=== PATIENT | female | born 1995 | race Caucasian/White ===

== ENCOUNTER 2018-10-04 14:41 | Day surgery (SDC) | payer OTHER ==
[2018-10-02 09:56] LABS: ABSOLUTE LYMPHOCYTES (AUTO) 2.1 10^3/uL (0.5-4.7); ABSOLUTE MONOCYTES (AUTO) 0.5 10^3/uL (0.1-1.4); ABSOLUTE NEUT (AUTO) 4.2 10^3/uL (1.7-8.2); BASOPHILS % (AUTO) 0.5 % (0-2); EOSINOPHILS % (AUTO) 0.4 % (0-6); HEMATOCRIT 40.3 % (36.0-47.0); HEMOGLOBIN 14.1 g/dL (12.0-15.5); LYMPHOCYTES % (AUTO) 30.8 % (13-45); MEAN CORPUSCULAR HEMOGLOBIN 30.7 pg (27.0-33.4); MEAN CORPUSCULAR VOLUME 88 fl (80-97); MONOCYTES % (AUTO) 6.9 % (3-13); PLATELET COUNT 337 10^3/uL (150-450); RED BLOOD COUNT 4.59 10^6/uL (3.72-5.28); RED CELL DISTRIBUTION WIDTH 12.2 % (11.5-14.0); SEGMENTED NEUTROPHILS % (AUTO) 61.4 % (42-78); TOTAL CELLS COUNTED % (AUTO) 100 %; WHITE BLOOD COUNT 6.8 10^3/uL (4.0-10.5)
[2018-10-02 10:07] LABS: APPEARANCE,URINE CLEAR; BILIRUBIN,URINE NEGATIVE (NEGATIVE); COLOR,URINE YELLOW; GLUCOSE, URINE NEGATIVE (NEGATIVE); KETONES,URINE NEGATIVE (NEGATIVE); LEUKOCYTE ESTERASE,URINE NEGATIVE (NEGATIVE); NITRITE,URINE NEGATIVE (NEGATIVE); PROTEIN,URINE NEGATIVE (NEGATIVE); URINE SPECIFIC GRAVITY 1.023; UROBILINOGEN,URINE NEGATIVE mg/dL (<2.0)
[2018-10-02 10:28] LABS: ANION GAP 11 (5-19); BLOOD UREA NITROGEN 13 mg/dL (7-20); CALCIUM 9.8 mg/dL (8.4-10.2); CARBON DIOXIDE 26 mmol/L (22-30); CHLORIDE 103 mmol/L (98-107); GLUCOSE 84 mg/dL (75-110); POTASSIUM 4.6 mmol/L (3.6-5.0); SODIUM 140.3 mmol/L (137-145)
--- NOTE | 2018-10-02 10:38 | RADIOLOGY REPORT (SQ) ---
EXAM DESCRIPTION: CHEST PA/LATERAL COMPLETED DATE/TIME: 10/02/2018 10:22 am REASON FOR STUDY: PRE-OP COMPARISON: None. EXAM PARAMETERS: NUMBER OF VIEWS: two views TECHNIQUE: Digital Frontal and Lateral radiographic views of the chest acquired. RADIATION DOSE: NA LIMITATIONS: none FINDINGS: LUNGS AND PLEURA: No opacities, masses or pneumothorax. No pleural effusion. MEDIASTINUM AND HILAR STRUCTURES: No masses or contour abnormalities. HEART AND VASCULAR STRUCTURES: Heart normal size. No evidence for failure. BONES: No acute findings. HARDWARE: None in the chest. OTHER: No other significant finding. IMPRESSION: 1. NO SIGNIFICANT RADIOGRAPHIC FINDING IN THE CHEST. TECHNICAL DOCUMENTATION: JOB ID: [id number] [facility]- All Rights Reserved Reading location - IP/workstation name: [email or web address]
--- NOTE | 2018-10-02 14:53 | EKG REPORT ---
SEVERITY:- NORMAL ECG - SINUS RHYTHM WITH SINUS ARRHTHYMIA : Confirmed by: Jenny Heredia 02-Oct-2018 14:52:33
[~2018-10-04 14:41] MED LIST: CEFAZOLIN 2 GM/D5W RTU 2 GM/50 ML RTUPB IV ONE; CEFAZOLIN 2 GM/D5W RTU 2 GM/50 ML RTUPB IV PRN; LACTATED RINGERS 1000 ML IV PRN; LIDOCAINE 0.5% INJ-PF (5 MG/ML) 50 ML SDV SUBCUT PRN
[2018-10-04] MEDS ORDERED: MIDAZOLAM 2 MG/2 ML INJ ONE (15:49)
[2018-10-04] MEDS ORDERED: ONDANSETRON HCL INJ/PF 4 MG/2 ML SDV ONE ×2 (15:49→18:39)
[2018-10-04] MEDS ORDERED: PROPOFOL INJ 200 MG/20 ML VIAL IV ONE (15:49)
[2018-10-04] MEDS ORDERED: DEXAMETHASONE SOD PHOSPHATE INJ 4 MG/1 ML VIAL ONE (15:49)
[2018-10-04] MEDS ORDERED: FENTANYL CITRATE INJ/PF 100 MCG/2 ML AMPUL ONE (15:49)
[2018-10-04] MEDS ORDERED: BUPIVACAINE HCL 0.5 % INJ/PF 30 ML SDV ONE (15:56)
[2018-10-04] MEDS ORDERED: MEPERIDINE HCL/PF INJ 25 MG/1 ML DISP.SYRIN IV PRN (16:22)
[2018-10-04] MEDS ORDERED: FENTANYL CITRATE INJ/PF 100 MCG/2 ML AMPUL IV PRN ×3 (16:22)
[2018-10-04] MEDS ORDERED: DIPHENHYDRAMINE HCL 50 MG/ML VIAL IV PRN (16:22)
[2018-10-04] MEDS ORDERED: MORPHINE SULFATE 10 MG/ML INJ IV PRN ×2 (16:22→17:28)
[2018-10-04] MEDS ORDERED: PROMETHAZINE HCL INJ 25 MG/1 ML VIAL IV PRN ×2 (16:22)
[2018-10-04] MEDS ORDERED: OXYCODONE-ACETAMINOPHEN 5-325 MG TABLET PO PRN (17:28)
[2018-10-04] MEDS ORDERED: ONDANSETRON HCL INJ/PF 4 MG/2 ML SDV IV PRN (17:28)
--- NOTE | 2018-10-04 17:33 | Operative Report ---
Operative Report DATE OF SURGERY: 10/04/18 PREOPERATIVE DIAGNOSIS: Painful Hardware Right Hand. Contracture Right Index M CP Joint POSTOPERATIVE DIAGNOSIS: Same OPERATION: Removal Hardware Right Hand. Extensor Tenolysis 2nd-4th Digits SURGEON: DANIKA CONTRERAS ANESTHESIA: GA COMPLICATIONS: None ESTIMATED BLOOD LOSS: Minimal PROCEDURE: Indication for above procedure: 23 female who sustained fractures of her second, third and fourth metacarpals. Underwent successful open reduction to fixation but continued to have residual contracture of her index finger and pain along the hardware dorsally. Radiographs demonstrate complete fracture healing at that point decision was made to proceed with operative intervention. Risks and benefits were explained patient verbalized understanding consented for surgical procedure. Procedure In Detail: Patient was seen and evaluated in the preoperative holding area. The RIGHT upper extremity was initialized and marked. Patient received 2g of Ancef IV for bacterial prophylaxis. Patient was taken back to the operative room where transferred to the operative table and placed under general anesthesia. Once they were adequately anesthetized a nonsterile tourniquet was placed on the upper extremity. A surgical team debriefing was performed ensuring all instrumentation was available, the surgical procedure was discussed with possible concerns reviewed. The upper extremity was prepped with chlorhexidine and alcohol and draped in a sterile fashion. A timeout was done identifying correct patient, procedure and extremity everyone in attendance agree with this and verbalized no concerns. The extremity was exsanguinated the tourniquet was inflated to 250 mmHg. Previous skin incision was utilized. Blunt dissection was performed. Any peripheral veins were coagulated bipolar cautery. The extensor tendons were then identified and extensor tenolysis was performed to the third digit. The plate over the third metacarpal was isolated and successfully removed. The screw holes were then curetted with a small curette. Blunt dissection was performed to expose the index metacarpal. The EIP and EDC to the index was then identified and tenolysis performed. Dorsal interossei was elevated to expose the hardware. Once again the screws were individually identified and removed along with the plate.. Remnant scar tissue was then excised the screw holes were then curetted and debrided. The MCP joint was identified and a dorsal capsulectomy performed after capsulectomy patient had fu ll passive flexion of the MCP joint. Previous ulnar skin incision was utilized. Branches of the dorsal ulnar sensory nerve identified. Dorsal interossei was elevated to expose the fourth metacarpal the plate was then debrided and screws removed. Plate was successfully removed. Screw holes were then curetted. Extensor tenolysis was performed to EDC IV. Wounds were copiously irrigated with normal saline. Subcutaneous tissue closed interrupted 4-0 Monocryl suture. Skin was closed with horizontal mattress 4-0 nylon suture. 30 cc of 0.5% the benzocaine without epinephrine was injected for postoperative pain control. Will be dressed with Xeroform 4 x 4's and a soft roll. Tourniquet was deflated patient had good peripheral perfusion. Sponge counts, instrument counts, needle counts were correct. Patient was then awoken from anesthesia. Transferred from the operating room table to the operating room stretcher. There was no intraoperative complications patient tolerated procedure well stable to PACU. Postoperative plan: Patient will follow in the office in 2 weeks for wound check. We will begin range of motion exercises immediately.
[2018-10-04] MEDS: FENTANYL CITRATE INJ/PF 100 MCG/2 ML AMPUL ONE ×2 (17:34→17:39)
--- NOTE | 2018-10-04 17:34 | Discharge Summary ---
Discharge Summary (SDC) - Discharge Final Diagnosis: Painful Hardware Right Hand Date of Surgery: 10/04/18 Forms: ASU Anesthesia D/C Instruction, Discharge POC-Surgical Service Treatment or Instructions: Schedule Follow Up w/ Dr. Serge Contreras @ [facility] to be seen in 10-14 days or as scheduled Dema: [place]: [employer]: May remove dressing on postop day #3, keep incision covered and dry. Ice and elevate May begin finger range of motion attempting to make full fist. Stool softener of choice when on pain medication. USE OF [id number] IBUPROFEN: Ibuprofen (Advil, Nuprin, Medipren, Motrin IB) is a medication for fever and pain control. In addition, it has anti- inflammatory effects which may be beneficial, especially in the treatment of injuries. It's best to take ibuprofen with food. Persons with ulcer disease or allergy to aspirin should notify their physician of this before taking ibuprofen. Ibuprofen can be given every four to six hours, for a total of four doses daily. Age Pain or fever dose Antiinflammatory dose 6-8 yr 200 mg (1 tab) 200 mg (1 tab) 9-11 yr 200 mg (1 tab) 200-400 mg (1-2 tab) 11-14 yr 200-400 mg (1-2 tab) 400 mg (2 tab) 15-adult 400 mg (2 tab) 600 mg (3 tab) ORAL NARCOTIC MEDICATION: You have been given a prescription for pain control. This medication is a narcotic. It's best taken with food, as nausea can result if taken on an empty stomach. Don't operate machinery or drive within six hours of taking this medication. Do not combine this medicine with alcohol, or with any medication which can cause sedation (such as cold tablets or sleeping pills) unless you get permission from the physician. Narcotics tend to cause constipation. If possible, drink plenty of fluids and eat a diet high in fiber and fruits. Please be aware that prescription narcotics also have the potential for abuse. People become addicted to these medications because of the general sense of wellbeing that they induce. This feeling along with a significant reduction in tension, anxiety, and aggression provides a stimulating seductive quality to these drugs. Once your pain is under control, we encourage you to discard your unused narcotics. Prescriptions: Oxycodone HCl/Acetaminophen [Percocet 5-325 mg Tablet] 1 tab PO Q6 PRN #25 tab PRN Reason: Referrals: SERGE CONTRERAS DO [ACTIVE STAFF] - Discharge Diet: As Tolerated Respiratory Treatments at Home: Deep Breathing/Coughing Discharge Activity: Activity As Tolerated Report the Following to Your Physician Immediately: Fever over 101 Degrees, Unusual Bleeding, Redness, Swelling, Warmth, Increased Soreness
--- NOTE | 2018-10-04 17:35 | RADIOLOGY REPORT (SQ) ---
EXAM DESCRIPTION: NO CHG FLUORO; HAND RIGHT 3 VIEWS COMPLETED DATE/TIME: 10/04/2018 5:17 pm REASON FOR STUDY: RT HAND HARDWARE REMOVAL COMPARISON: None. FLUOROSCOPY TIME: 10 seconds 4 Images saved to PACS LIMITATIONS: None. PROCEDURE: Hardware removal. FINDINGS: Images from fluoro document removal of compression plates from the 2nd and 4th metacarpals . Screw holes are present in the 3rd metacarpal, suggesting perhaps that a plate was removed from th is point. IMPRESSION: Hardware removal. Refer to operative note for further information. COMMENT: PQRS 6045F: Fluoroscopy time of the procedure is documented in the report. TECHNICAL DOCUMENTATION: JOB ID: [id number] [employer]- All Rights Reserved Reading location - IP/workstation name: [email or web address]
--- NOTE | 2018-10-04 17:35 | RADIOLOGY REPORT (SQ) ---
EXAM DESCRIPTION: NO CHG FLUORO; HAND RIGHT 3 VIEWS COMPLETED DATE/TIME: 10/04/2018 5:17 pm REASON FOR STUDY: RT HAND HARDWARE REMOVAL COMPARISON: None. FLUOROSCOPY TIME: 10 seconds 4 Images saved to PACS LIMITATIONS: None. PROCEDURE: Hardware removal. FINDINGS: Images from fluoro document removal of compression plates from the 2nd and 4th metacarpals . Screw holes are present in the 3rd metacarpal, suggesting perhaps that a plate was removed from th is point. IMPRESSION: Hardware removal. Refer to operative note for further information. COMMENT: PQRS 6045F: Fluoroscopy time of the procedure is documented in the report. TECHNICAL DOCUMENTATION: JOB ID: [id number] [employer]- All Rights Reserved Reading location - IP/workstation name: [email or web address]
[2018-10-04] MEDS: MEPERIDINE HCL/PF INJ 25 MG/1 ML DISP.SYRIN ONE ×2 (17:42→17:47)
[2018-10-04] MEDS ORDERED: OXYCODONE-ACETAMINOPHEN 5-325 MG TABLET ONE (18:33)
[2018-10-04 20:48] VITALS: BP 110/63
== END 2018-10-04 19:35 | disposition home or self-care (01) ==
LOC: OROUT 14:41
PROVIDERS: ATTEND Orthopaedic Surgery
DX: T84.418A Breakdown (mechanical) of other internal orthopedic devices, implants and grafts, initial encounter (principal); Y83.8 Other surgical procedures as the cause of abnormal reaction of the patient, or of later complication, without mention of misadventure at the time of the procedure; Z01.810 Encounter for preprocedural cardiovascular examination; Z01.811 Encounter for preprocedural respiratory examination
CPT/HCPCS: 93010; 93005; 36415; 85025; 81025; 80048; 81001; 71046; 73130; 20680; J2250; J3490; J1100; J3010; J2175; J2405; J2704; J0690; 01830